=== PATIENT | female | born 1980 | race Caucasian/White ===

== ENCOUNTER 2016-04-14 17:59 | Emergency (ER) | payer OTHER ==
[2016-04-14 18:11] VITALS: BP 146/72; PULSE 74; TEMP 98.3; BMI 28.5
[2016-04-14] MEDS ORDERED: ONDANSETRON 4 MG/2 ML VIAL IVPB ONE (18:48)
[2016-04-14] MEDS ORDERED: KETOROLAC TROMETHAMINE 30 MG/1 ML VIAL IVPUSH ONE (18:49)
--- NOTE | 2016-04-14 18:50 | PDOC ---
History of Present Illness - General History Source: Patient, Family, Old Records Exam Limitations: No Limitations - History of Present Illness Initial Comments: 04/14/16 19:09 The patient is a 35 year old female with a significant past medical history of severe migraines who presents to the emergency department with a migraine. The patient states that she has had intermittent migraines for the past year and a half. The patient describes the pain as constantly being stabbed in the head. The patient states that her migraine is accompanied by nausea, numbness and tingling in her right arm and neck pain. The patient states that she took percocet and benadryl at 4:30 with minimal relief of symptoms. 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 Patient sees her neurologist twice a week. This is the patients 6th visit to the emergency department in the last 30 days. The patient states that she is a candidate for a trial neurosurgery later this month. The patient denies diarrhea and vomiting Neurologist - Dr. Tiana Villalpando at [facility] <Amor Pierre - Last Filed: 04/14/16 20:20> - History of Present Illness Initial Comments: 04/23/16 08:15 Patient with intractable migraine headaches, has been to multiple therapies, under the care of a neurologist, exacerbation of headache today. Headache fits her usual pattern. No unusual symptoms. No visual or focal neurologic symptoms or unsteadiness of gait Physical exam alert and oriented with a headache. Appears to be in mild distress Afebrile, vital signs are normal Neurological intact. Cranial nerves intact. Strength is symmetric. No focal sensory or motor deficits. Gait stable and improved. 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 Antibiotics and Toradol. Further evaluation pain management. Signed out to Dr. Medina 7 PM for further treatment. <Shreyas Barboza - Last Filed: 04/23/16 08:17> - General Chief Complaint: Migraine Headache Stated Complaint: MIGRAINE HEADACHE Time Seen by Provider: 04/14/16 18:38 Past History <Amor Pierre - Last Filed: 04/14/16 20:20> - Past Medical History HTN: Yes Psychiatric Problems: Yes (DEPRESSION/ANXIETY/ADHD) Suicide Attempt (Hx): No - Psycho/Social/Smoking Cessation Hx Anxiety: No Suicidal Ideation: No Smoking Status: Yes Smoking History: Former smoker Have you smoked in the past 12 months: Yes Number of Cigarettes Smoked Daily: 10 If you are a former smoker, when did you quit?: JANUARY Information on smoking cessation initiated: No 'Breaking Loose' booklet given: 03/24/16 Hx Alcohol Use: No Drug/Substance Use Hx: No Substance Use Type: None <Shreyas Barboza - Last Filed: 04/23/16 08:17> - Past Medical History Allergies/Adverse Reactions: Allergies Allergy/AdvReac Type Severity Reaction Status Date / Time No Known Allergies Allergy Verified 03/28/16 19:23 Home Medications: Ambulatory Orders Buspirone HCl [Buspar -] 30 mg PO BID 09/08/14 Lorazepam [Ativan] 1 mg PO TID 09/08/14 Sertraline HCl [Zoloft] 200 mg PO HS 09/08/14 Divalproex [Depakote -] 500 mg PO BID 03/19/16 Quetiapine Fumarate [Seroquel -] 50 mg PO HS 03/19/16 Sumatriptan Succinate [Imitrex -] 50 mg PO ASDIR PRN 03/19/16 Oxycodone HCl/Acetaminophen [Percocet 5-325 mg Tablet] 1 tab PO Q4H #12 tablet MDD 8 03/28/16 Diphenhydramine HCl [Benadryl -] 25 mg PO ONCE PRN 04/14/16 Review of Systems - Review of Systems Able to Perform ROS?: Yes Comments:: 04/14/16 19:10 CONSTITUTIONAL: Absent: fever, chills, diaphoresis, generalized weakness, malaise, loss of appetite HEENT: Absent: rhinorrhea, nasal congestion, throat pain, throat swelling, difficulty swallowing, mouth swelling, ear pain, eye pain, visual Changes CARDIOVASCULAR: Absent: chest pain, syncope, palpitations, irregular heart rate, lightheadedness , peripheral edema RESPIRATORY: Absent: cough, shortness of breath, dyspnea with exertion, orthopnea, wheezing, stridor, hemoptysis GASTROINTESTINAL: Present: Nausea Absent: abdominal pain, abdominal distension, nausea, vomiting, diarrhea, constipation, melena, hematochezia GENITOURINARY: Absent: dysuria, frequency, urgency, hesitancy, hematuria, flank pain, genital pain MUSCULOSKELETAL: Present: Right arm tinglingness and neck pain. Absent: arthralgia and joint swelling SKIN: Absent: rash, itching, pallor HEMATOLOGIC/IMMUNOLOGIC: Absent: easy bleeding, easy bruising, lymphadenopathy, frequent infections ENDOCRINE: Absent: unexplained weight gain, unexplained weight loss, heat intolerance, cold intolerance NEUROLOGIC: Present: Migraine Absent: headache, focal weakness or paresthesias, dizziness, unsteady gait, seizure, mental status changes, bladder or bowel incontinence PSYCHIATRIC: Absent: anxiety, depression, suicidal or homicidal ideation, hallucinations. <Amor Pierre - Last Filed: 04/14/16 20:20> *Physical Exam - Vital Signs Last Vital Signs Temp Pulse Resp BP Pulse Ox 98.3 F 74 16 146/72 100 04/14/16 18:00 04/14/16 18:00 04/14/16 18:00 04/14/16 18:00 04/14/16 18:00 - Physical Exam Comments: 04/14/16 19:10 GENERAL: Well developed, well nourished. Awake and alert. In no acute distress. HEENT: Normocephalic, atraumatic. PERRLA, EOMI. No conjunctival pallor. Sclera are non- icteric. Moist mucous membranes. Oropharynx is clear. NECK: Supple. Full ROM. No JVD. Carotid pulses 2+ and symmetric, without bruits. No thyromegaly. No lymphadenopathy. CARDIOVASCULAR: Regular rate and rhythm. No murmurs, rubs, or gallops. Distal pulses are 2+ and symmetric. PULMONARY: No evidence of respiratory distress. Lungs clear to auscultation bilaterally. No wheezing, rales or rhonchi. ABDOMINAL: Soft. Non-tender. Non-distended. No rebound or guarding. No organomegaly. Normoactive bowel sounds. MUSCULOSKELETAL Normal range of motion at all joints. No bony deformities or tenderness. No CVA tenderness. EXTREMITIES: No cyanosis. No clubbing. No edema. No calf tenderness. SKIN: Warm and dry. Normal capillary refill. No rashes. No jaundice. NEUROLOGICAL: Photophobia, Alert, awake, appropriate. Cranial nerves 2-12 intact. No deficits to light touch and temperature in face, upper extremities and lower extremities. No motor deficits in the in face, upper extremities and lower extremities. Normoreflexic in the upper and lower extremities. Normal speech. Ambulatory with stable gait without ataxia. PSYCHIATRIC: Cooperative. Appropriate mood and affect <Amor Pierre - Last Filed: 04/14/16 20:20> - Vital Signs Last Vital Signs Temp Pulse Resp BP Pulse Ox 98.3 F 74 16 146/72 100 04/14/16 18:00 04/14/16 18:00 04/14/16 18:00 04/14/16 18:00 04/14/16 18:00 <Shreyas Barboza - Last Filed: 04/23/16 08:17> *DC/Admit/Observation/Transfer - Attestations Scribe Attestion: 04/14/16 19:10 Documentation prepared by Amor Pierre, acting as medical underwriter for Shreyas Barboza MD. <Amor Pierre - Last Filed: 04/14/16 20:20> <Shreyas Barboza - Last Filed: 04/23/16 08:17> Diagnosis at time of Disposition: Migraine headache - Discharge Dispostion Disposition: HOME Condition at time of disposition: Stable - Referrals Referrals: Gary Dorado MD [Primary Care Provider] - - Patient Instructions Printed Discharge Instructions: Migraine Headaches (Alternative Therapy) Additional Instructions: followup with neurologist on Apr 16 as scheduled continue medications as prescribed return to ER as needed
[2016-04-14] MEDS ORDERED: KETOROLAC TROMETHAMINE 30 MG/1 ML VIAL ONE (19:03)
[2016-04-14] MEDS ORDERED: ONDANSETRON 4 MG/2 ML VIAL ONE (19:03)
--- NOTE | 2016-04-14 19:23 | PDOC ---
*Physical Exam - Vital Signs Last Vital Signs Temp Pulse Resp BP Pulse Ox 98.3 F 74 16 146/72 100 04/14/16 18:00 04/14/16 18:00 04/14/16 18:00 04/14/16 18:00 04/14/16 18:00 ED Treatment Course - Medications Given in the ED: ED Medications Discontinued Medications Generic Name Dose Route Start Last Admin Trade Name Preethi PRN Reason Stop Dose Admin Diphenhydramine HCl 50 mg 04/14/16 18:49 04/14/16 19:00 Benadryl Injection - IVPUSH 04/14/16 18:50 50 mg ONCE ONE Administration Ketorolac Tromethamine 30 mg 04/14/16 18:49 04/14/16 19:05 Toradol Injection - IVPUSH 04/14/16 18:50 30 mg ONCE ONE Administration Ondansetron HCl 4 mg 04/14/16 18:48 04/14/16 19:14 Zofran Injection IVPB 04/14/16 18:49 4 mg ONCE ONE Administration Progress Note - Progress Note Progress Note: Care of this patient received from Dr. Anderson. The patient reports no relief in her pain after Toradol/Benadryl/Zofran, although she is no longer nauseated Dilaudid 1 mg IV administered. Patient reports relief of pain after Dilaudid given. Follow-up will be with the patient's neurologist on April 16. Patient states that she will be having her neurosurgical procedure sometime in the next few weeks (" before the end of the month ") *DC/Admit/Observation/Transfer Diagnosis at time of Disposition: Migraine headache Qualifiers: Migraine type: other Status migrainosus presence: without status migrainosus Intractability: not intractable Qualified Code(s): G43.809 - Other migraine, not intractable, without status migrainosus - Discharge Dispostion Disposition: HOME Condition at time of disposition: Stable - Referrals Referrals: Gary Dorado MD [Primary Care Provider] - - Patient Instructions Printed Discharge Instructions: Migraine Headaches (Alternative Therapy) Additional Instructions: followup with neurologist on Apr 16 as scheduled continue medications as prescribed return to ER as needed - Post Discharge Activity
[2016-04-14] MEDS ORDERED: HYDROmorphone HCL CARPU-JECT 1 MG/1 ML DISP.SYRIN IVPUSH ONE (20:17)
[2016-04-14] MEDS ORDERED: HYDROmorphone HCL CARPU-JECT 2 MG/1 ML DISP.SYRIN ONE (20:29)
== END 2016-04-14 21:01 | disposition home or self-care (01) ==
LOC: FER 17:59
PROC: 3E033NZ Introduction of Analgesics, Hypnotics, Sedatives into Peripheral Vein, Percutaneous Approach (ICD-10-PCS; principal; 2016-04-14)
PROC: 3E033GC Introduction of Other Therapeutic Substance into Peripheral Vein, Percutaneous Approach (ICD-10-PCS; 2016-04-14)
PROC: 3E0333Z Introduction of Anti-inflammatory into Peripheral Vein, Percutaneous Approach (ICD-10-PCS; 2016-04-14)
DX: G43.809 Other migraine, not intractable, without status migrainosus (principal); Z87.891 Personal history of nicotine dependence; I10 Essential (primary) hypertension; F41.8 Other specified anxiety disorders
CPT/HCPCS: 99282-25

== ENCOUNTER 2016-04-23 13:30 | Emergency (ER) | payer OTHER ==
[2016-04-23 13:40] VITALS: BMI 29.0
[2016-04-23] MEDS ORDERED: KETOROLAC TROMETHAMINE 30 MG/1 ML VIAL IVPUSH ONE (14:43)
[2016-04-23] MEDS ORDERED: LORAZEPAM CARPU-JECT 2 MG/ML DISP.SYRIN IVPUSH ONE (14:44)
[2016-04-23] MEDS ORDERED: HYDROmorphone HCL CARPU-JECT 1 MG/1 ML DISP.SYRIN IVPUSH ONE (14:44)
[2016-04-23] MEDS ORDERED: LORAZEPAM CARPU-JECT 2 MG/ML DISP.SYRIN ONE (14:57)
[2016-04-23] MEDS ORDERED: KETOROLAC TROMETHAMINE 30 MG/1 ML VIAL ONE (14:57)
[2016-04-23] MEDS ORDERED: HYDROmorphone HCL CARPU-JECT 2 MG/1 ML DISP.SYRIN ONE (14:57)
--- NOTE | 2016-04-23 15:38 | PDOC ---
History of Present Illness - General History Source: Patient Exam Limitations: No Limitations - History of Present Illness Initial Comments: 04/23/16 15:38 The patient is a 35 year old female, with a significant past medical history of HTN, migraines, ADHD, depressions, and anxiety who presents to the emergency department with a migraine headache with nausea that started today. The patient ranks her headache pain a 10/10 in pain intensity. She describes her headache as a stabbing pressure at her frontal lobe and relates that this is similar to her previous migraine headaches. She reports going to see her neurologist this morning during this headache and was giving nerve blocks that only elicited temporary relief. She reports recently booking a surgery with her neurologist at [facility] could help alleviate her severe migraines. She reports took a percocet this morning with no significant alleviation at 8:30am. She denies chest pain and shortness of breath. She denies fever, chills, and dizziness. She denies vomit, diarrhea and constipation. She denies dysuria, frequency, urgency and hematuria. Allergies: NKA Past surgical history: denies Social history: Former smoker, denies EtOH use, denies drug use. PCP: <Donny Plunkett - Last Filed: 04/23/16 15:38> <Shreyas Barboza - Last Filed: 04/23/16 16:59> - General Chief Complaint: Migraine Headache Stated Complaint: MIGRAINE HEADACHE Time Seen by Provider: 04/23/16 13:51 Past History <Donny Plunkett - Last Filed: 04/23/16 15:38> - Past Medical History HTN: Yes Psychiatric Problems: Yes (DEPRESSION/ANXIETY/ADHD) Suicide Attempt (Hx): No Other medical history: MIGRAINE HEADACHES - Psycho/Social/Smoking Cessation Hx Anxiety: Yes Suicidal Ideation: No Smoking Status: Yes Smoking History: Former smoker Have you smoked in the past 12 months: Yes Number of Cigarettes Smoked Daily: 10 If you are a former smoker, when did you quit?: JANUARY Information on smoking cessation initiated: No 'Breaking Loose' booklet given: 04/23/16 Hx Alcohol Use: No Drug/Substance Use Hx: No Substance Use Type: None <Shreyas Barboza - Last Filed: 04/23/16 16:59> - Past Medical History Allergies/Adverse Reactions: Allergies Allergy/AdvReac Type Severity Reaction Status Date / Time No Known Allergies Allergy Verified 04/23/16 13:34 Home Medications: Ambulatory Orders Buspirone HCl [Buspar -] 30 mg PO BID 09/08/14 Lorazepam [Ativan] 1 mg PO TID 09/08/14 Sertraline HCl [Zoloft] 200 mg PO HS 09/08/14 Divalproex [Depakote -] 500 mg PO BID 03/19/16 Quetiapine Fumarate [Seroquel -] 50 mg PO HS 03/19/16 Oxycodone HCl/Acetaminophen [Percocet 5-325 mg Tablet] 1 tab PO Q4H #12 tablet MDD 8 03/28/16 Diphenhydramine HCl [Benadryl -] 25 mg PO ONCE PRN 04/14/16 Tizanidine HCl 4 mg PO PRN PRN 04/23/16 Zolmitriptan [Zomig] 2.5 mg PO BID 04/23/16 Review of Systems - Review of Systems Able to Perform ROS?: Yes Comments:: 04/23/16 15:38 CONSTITUTIONAL: Absent: fever, chills, diaphoresis, generalized weakness, malaise, loss of appetite HEENT: Absent: rhinorrhea, nasal congestion, throat pain, throat swelling, difficulty swallowing, mouth swelling, ear pain, eye pain, visual Changes CARDIOVASCULAR: Absent: chest pain, syncope, palpitations, irregular heart rate, lightheadedness , peripheral edema RESPIRATORY: Absent: cough, shortness of breath, dyspnea with exertion, orthopnea, wheezing, stridor, hemoptysis GASTROINTESTINAL: Present: Nausea. Absent: abdominal pain, abdominal distension, vomiting, diarrhea, constipation, melena, hematochezia GENITOURINARY: Absent: dysuria, frequency, urgency, hesitancy, hematuria, flank pain, genital pain MUSCULOSKELETAL: Absent: myalgia, arthralgia, joint swelling SKIN: Absent: rash, itching, pallor HEMATOLOGIC/IMMUNOLOGIC: Absent: easy bleeding, easy bruising, lymphadenopathy, frequent infections ENDOCRINE: Absent: unexplained weight gain, unexplained weight loss, heat intolerance, cold intolerance NEUROLOGIC: Present: headache Absent:focal weakness or paresthesias, dizziness, unsteady gait, seizure, mental status changes, bladder or bowel incontinence PSYCHIATRIC: Absent: anxiety, depression, suicidal or homicidal ideation, hallucinations. <Donny Plunkett - Last Filed: 04/23/16 15:38> *Physical Exam - Vital Signs Last Vital Signs Temp Pulse Resp BP Pulse Ox 98.7 F 87 18 127/75 98 04/23/16 13:30 04/23/16 13:30 04/23/16 13:30 04/23/16 13:30 04/23/16 13:30 - Physical Exam Comments: 04/23/16 15:38 GENERAL: Well developed, well nourished. Awake and alert. Moderate distress from centripetal headaches, usual for this patient with photophobia and nausea. HEENT: Normocephalic, atraumatic. PERRLA, Pupils were 4mm and reactive. No conjunctival pallor. Sclera are non-icteric. Moist mucous membranes. Oropharynx is clear. NECK: Supple. Full ROM. No JVD. Carotid pulses 2+ and symmetric, without bruits. No thyromegaly. No lymphadenopathy. CARDIOVASCULAR: Regular rate and rhythm. No murmurs, rubs, or gallops. Distal pulses are 2+ and symmetric. PULMONARY: No evidence of respiratory distress. Lungs clear to auscultation bilaterally. No wheezing, rales or rhonchi. ABDOMINAL: Soft. Non-tender. Non-distended. No rebound or guarding. No organomegaly. Normoactive bowel sounds. MUSCULOSKELETAL Normal range of motion at all joints. No bony deformities or tenderness. No CVA tenderness. EXTREMITIES: No cyanosis. No clubbing. No edema. No calf tenderness. SKIN: Warm and dry. Normal capillary refill. No rashes. No jaundice. NEUROLOGICAL: Alert, awake, appropriate. Cranial nerves 2-12 intact. No deficits to light touch and temperature in face, upper extremities and lower extremities. No motor deficits in the in face, upper extremities and lower extremities. Normoreflexic in the upper and lower extremities. Normal speech. Toes are down- going bilaterally. Gait is normal without ataxia. PSYCHIATRIC: Cooperative. Good eye contact. Appropriate mood and affect. <Donny Plunkett - Last Filed: 04/23/16 15:38> - Vital Signs Last Vital Signs Temp Pulse Resp BP Pulse Ox 98.7 F 87 18 127/75 98 04/23/16 13:30 04/23/16 13:30 04/23/16 13:30 04/23/16 13:30 04/23/16 13:30 <Shreyas Barboza - Last Filed: 04/23/16 16:59> ED Treatment Course - Medications Given in the ED: ED Medications Discontinued Medications Generic Name Dose Route Start Last Admin Trade Name Freq PRN Reason Stop Dose Admin Diphenhydramine HCl 50 mg 04/23/16 14:43 04/23/16 15:00 Benadryl Injection - IVPUSH 04/23/16 14:44 50 mg ONCE ONE Administration Hydromorphone HCl 1 mg 04/23/16 14:44 04/23/16 15:15 Dilaudid Injection - IVPUSH 04/23/16 14:45 1 mg ONCE ONE Administration Ketorolac Tromethamine 30 mg 04/23/16 14:43 04/23/16 15:00 Toradol Injection - IVPUSH 04/23/16 14:44 30 mg ONCE ONE Administration <Donny Plunkett - Last Filed: 04/23/16 15:38> - Medications Given in the ED: ED Medications Discontinued Medications Generic Name Dose Route Start Last Admin Trade Name Freq PRN Reason Stop Dose Admin Diphenhydramine HCl 50 mg 04/23/16 14:43 04/23/16 15:00 Benadryl Injection - IVPUSH 04/23/16 14:44 50 mg ONCE ONE Administration Hydromorphone HCl 1 mg 04/23/16 14:44 04/23/16 15:15 Dilaudid Injection - IVPUSH 04/23/16 14:45 1 mg ONCE ONE Administration Ketorolac Tromethamine 30 mg 04/23/16 14:43 04/23/16 15:00 Toradol Injection - IVPUSH 04/23/16 14:44 30 mg ONCE ONE Administration <Shreyas Barboza - Last Filed: 04/23/16 16:59> Medical Decision Making - Medical Decision Making 04/23/16 16:56 Spoke to the patient's neurologist, Dr. Low, by phone. She verifies she is under treatment, received nerve blocks this morning in the office and seemed to improve. She does not think that the patient is drug seeking, though she does have considerable psychiatric overlay to her condition. Migraines have been present since her youth, but have intensified over the last 2-1/2 years Patient's neurological exam is intact. She has no deficits that her gait is stable. She has responded well to intravenous medication, headache is resolving and she is fully ambulatory, desiring to leave. Discharged in the company of her family to follow up as scheduled with her neurologist and surgeon. <Shreyas Barboza - Last Filed: 04/23/16 16:59> *DC/Admit/Observation/Transfer - Attestations Scribe Attestion: 04/23/16 15:39 Documentation prepared by Donny Plunkett, acting as medical pathologist for Shreyas Zhu MD. <Donny Plunkett - Last Filed: 04/23/16 15:38> - Discharge Dispostion Admit: No <Shreyas Barboza - Last Filed: 04/23/16 16:59> Diagnosis at time of Disposition: Migraine headache Qualifiers: Migraine type: unspecified Status migrainosus presence: with status migrainosus Intractability: intractable Qualified Code(s): G43.911 - Migraine, unspecified, intractable, with status migrainosus - Discharge Dispostion Condition at time of disposition: Stable - Referrals Referrals: Gary Dorado MD [Primary Care Provider] - - Patient Instructions Additional Instructions: Medication as directed by your neurologist. See your neurologist for follow-up as scheduled.
[2016-04-23 16:34] VITALS: BP 117/65; PULSE 89; TEMP 97.8
== END 2016-04-23 16:35 | disposition home or self-care (01) ==
LOC: FER 13:30
PROC: 3E033NZ Introduction of Analgesics, Hypnotics, Sedatives into Peripheral Vein, Percutaneous Approach (ICD-10-PCS; principal; 2016-04-23)
PROC: 3E0333Z Introduction of Anti-inflammatory into Peripheral Vein, Percutaneous Approach (ICD-10-PCS; 2016-04-23)
PROC: 3E033GC Introduction of Other Therapeutic Substance into Peripheral Vein, Percutaneous Approach (ICD-10-PCS; 2016-04-23)
DX: G43.911 Migraine, unspecified, intractable, with status migrainosus (principal); I10 Essential (primary) hypertension; F41.8 Other specified anxiety disorders; Z87.891 Personal history of nicotine dependence
CPT/HCPCS: 99284-25

== ENCOUNTER 2016-05-06 09:53 | Emergency (ER) | payer OTHER ==
[2016-05-06 10:13] VITALS: BP 123/80; PULSE 88; TEMP 98.1; BMI 29.0
[2016-05-06] MEDS ORDERED: HYDROmorphone HCL CARPU-JECT 1 MG/1 ML DISP.SYRIN IVPB ONE (10:19)
[2016-05-06] MEDS ORDERED: ONDANSETRON 4 MG/2 ML VIAL IVPB ONE (10:19)
[2016-05-06] MEDS ORDERED: KETOROLAC TROMETHAMINE 30 MG/1 ML VIAL IVPUSH ONE (10:19)
[2016-05-06] MEDS ORDERED: SODIUM CHLORIDE 1,000 ML IV STA (10:20)
[2016-05-06] MEDS ORDERED: HYDROmorphone HCL CARPU-JECT 2 MG/1 ML DISP.SYRIN ONE (10:27)
[2016-05-06] MEDS ORDERED: ONDANSETRON 4 MG/2 ML VIAL ONE (10:27)
--- NOTE | 2016-05-06 10:51 | PDOC ---
History of Present Illness - General Chief Complaint: Migraine Headache Stated Complaint: migraine Time Seen by Provider: 05/06/16 10:00 History Source: Patient Exam Limitations: No Limitations - History of Present Illness Initial Comments: 05/06/16 11:16 35-year-old female with past medical history of hypertension, migraines, ADHD, depression and anxiety presents to the emergency department for persistent migraines. Patient was here on April 23 for similar types of migraines. She reports that it is sharp and pounding and is in the frontal and posterior parts of her head, similar to her prior headaches. She has been going for intermittent nerve blocks. She reports that she's been taking Percocets with minimal to moderate relief. She has an appointment for an experimental nerve decompression surgery in the second week of May. The patient accompanied by her father. Denies fevers, chills. Stated that this episode, the headache occurred for the last 3 days. Past History - Past Medical History Allergies/Adverse Reactions: Allergies Allergy/AdvReac Type Severity Reaction Status Date / Time No Known Allergies Allergy Verified 05/06/16 09:54 Home Medications: Ambulatory Orders Buspirone HCl [Buspar -] 30 mg PO BID 09/08/14 Lorazepam [Ativan] 1 mg PO TID 09/08/14 Sertraline HCl [Zoloft] 200 mg PO HS 09/08/14 Quetiapine Fumarate [Seroquel -] 50 mg PO HS 03/19/16 Oxycodone HCl/Acetaminophen [Percocet 5-325 mg Tablet] 1 tab PO Q4H #12 tablet MDD 8 03/28/16 Diphenhydramine HCl [Benadryl -] 25 mg PO ONCE PRN 04/14/16 Tizanidine HCl 4 mg PO PRN PRN 04/23/16 Zolmitriptan [Zomig] 2.5 mg PO BID 04/23/16 HTN: Yes Psychiatric Problems: Yes (DEPRESSION/ANXIETY/ADHD) Suicide Attempt (Hx): No Other medical history: migraine - Psycho/Social/Smoking Cessation Hx Anxiety: Yes Suicidal Ideation: No Smoking Status: Yes Smoking History: Former smoker Have you smoked in the past 12 months: Yes Number of Cigarettes Smoked Daily: 10 If you are a former smoker, when did you quit?: JANUARY Information on smoking cessation initiated: Yes 'Breaking Loose' booklet given: 05/06/16 Hx Alcohol Use: No Drug/Substance Use Hx: No Substance Use Type: None Review of Systems - Review of Systems Able to Perform ROS?: Yes Comments:: 05/06/16 11:17 GENERAL/CONSTITUTIONAL: No fever, weakness. HEAD, EYES, EARS, NOSE AND THROAT: No change in vision. No ear pain or discharge. No sore throat. CARDIOVASCULAR: No chest pain or shortness of breath. RESPIRATORY: No cough, wheezing, or hemoptysis. GASTROINTESTINAL: No abdominal pain, nausea, vomiting, diarrhea, or decreased PO intolerance. GENITOURINARY: No dysuria, frequency, or change in urination. MUSCULOSKELETAL: No joint or muscle swelling or pain. No neck or back pain. SKIN: No rash NEUROLOGIC: + headache. No vertigo, loss of consciousness, or change in strength /sensation. ENDOCRINE: No increased thirst. No abnormal weight change. HEMATOLOGIC/LYMPHATIC: No anemia, easy bleeding, or history of blood clots. ALLERGIC/IMMUNOLOGIC: No hives or skin allergy. *Physical Exam - Vital Signs Last Vital Signs Temp Pulse Resp BP Pulse Ox 98.1 F 88 20 123/80 99 05/06/16 09:53 05/06/16 09:53 05/06/16 09:53 05/06/16 09:53 05/06/16 09:53 - Physical Exam Comments: 05/06/16 11:17 GENERAL: Awake, alert, and fully oriented. Uncomfortable appearing. HEAD: No signs of trauma EYES: PERRLA, EOMI, sclera anicteric, conjunctiva clear ENT: Auricles normal inspection, hearing grossly normal, nares patent, oropharynx clear without exudates. NECK: Normal ROM, supple, no lymphadenopathy, JVD, or masses LUNGS: Breath sounds equal, clear to auscultation bilaterally. No wheezes, and no crackles HEART: Regular rate and rhythm, normal S1 and S2, no murmurs, rubs or gallops ABDOMEN: Soft, nontender, normoactive bowel sounds. No guarding, no rebound. No masses EXTREMITIES: Normal range of motion, no edema. No clubbing or cyanosis. No cords, erythema, or tenderness NEUROLOGICAL: Cranial nerves II - XII intact. Normal speech, normal gait. 5/5 strength upper and lower extremities intact. Sensation intact. No pronator drift. SKIN: Warm, Dry, normal turgor, no rashes or lesions noted. Medical Decision Making - Medical Decision Making 05/06/16 11:18 Vital Signs Temp Pulse Resp BP Pulse Ox 98.1 F 88 20 123/80 99 05/06/16 09:53 05/06/16 09:53 05/06/16 09:53 05/06/16 09:53 05/06/16 09:53 CLINICAL SUPPORT TECH Registry reviewed. Reference #: [id number] Prior documentation reviewed. The patient presents with particularly difficult to control migraines. She is preparing to undergo experimental nerve decompression surgery. Prior documentation notes that cases were discussed with her doctors. The patient did acknowledge that she uses percocets and triptans for her constant migraines. Will give her IV toradol, IV dilaudid, zofran, and benadryl and reassess. I had placed a phone call to her neurologist Dr. Villalpando, and awaiting a phone call back. Once the patient feels better, will d/c with her father and have her follow up with the neurologist. 05/06/16 11:31 test negative. Patient reports much more relief. Will d/c home with dad. Patient has an appointment with her neurologist tomorrow at 9:30 am. I discussed the physical exam findings, ancillary test results and final diagnoses with the patient. I answered all of the patient's questions. The patient was satisfied with the care received and felt comfortable with the discharge plan and treatment plan. The patient will call their primary care physician within 24 hours to arrange follow-up and will return to the Emergency Department with any new, persistant or worsening symptoms. *DC/Admit/Observation/Transfer Diagnosis at time of Disposition: Migraine headache Qualifiers: Migraine type: other Status migrainosus presence: without status migrainosus Intractability: not intractable Qualified Code(s): G43.809 - Other migraine, not intractable, without status migrainosus - Discharge Dispostion Disposition: HOME Condition at time of disposition: Improved Admit: No - Patient Instructions Printed Discharge Instructions: DI for Migraine Additional Instructions: Please follow up with your neurologist tomorrow.
[2016-05-06] MEDS ORDERED: KETOROLAC TROMETHAMINE 30 MG/1 ML VIAL ONE (11:32)
== END 2016-05-06 11:37 | disposition home or self-care (01) ==
LOC: FER 09:53
PROC: 3E033NZ Introduction of Analgesics, Hypnotics, Sedatives into Peripheral Vein, Percutaneous Approach (ICD-10-PCS; principal; 2016-05-06)
PROC: 3E0333Z Introduction of Anti-inflammatory into Peripheral Vein, Percutaneous Approach (ICD-10-PCS; 2016-05-06)
PROC: 3E033GC Introduction of Other Therapeutic Substance into Peripheral Vein, Percutaneous Approach (ICD-10-PCS; 2016-05-06)
PROC: 3E0337Z Introduction of Electrolytic and Water Balance Substance into Peripheral Vein, Percutaneous Approach (ICD-10-PCS; 2016-05-06)
DX: G43.809 Other migraine, not intractable, without status migrainosus (principal); I10 Essential (primary) hypertension; F41.8 Other specified anxiety disorders; F17.210 Nicotine dependence, cigarettes, uncomplicated
CPT/HCPCS: 84703; 99283-25

== ENCOUNTER 2016-05-20 18:40 | Emergency (ER) | payer OTHER ==
[2016-05-20 18:52] VITALS: BP 130/91; PULSE 79; TEMP 98.6; BMI 29.1
--- NOTE | 2016-05-20 19:21 | PDOC ---
History of Present Illness - General History Source: Patient Exam Limitations: No Limitations - History of Present Illness Initial Comments: 05/20/16 19:30 The patient is a 35-year-old female with past medical history of hypertension, migraines, ADHD, depression and anxiety presents to the emergency department for a migraine headache and nausea that began 2 days ago. Patient describes the headache as a band around the head. She states the pain is throbbing and is 10/ 10 in severity. She states the migraine headache worsens with light, smells, and cold weather. She states she had a nerve block this morning (w/ a numbing agent), wore off around 2 PM. She states she has had similar symptoms in the past and was given Toradol, Benadryl, Reglan, and Dilaudid in the ER. She is slated for a nerve decompression procedure in the near future, but is solving issues with insurance. <Hansel Royal - Last Filed: 05/20/16 19:53> <Maira Medina - Last Filed: 05/20/16 21:26> - General Chief Complaint: Migraine Headache Stated Complaint: HEADACHE Time Seen by Provider: 05/20/16 19:14 Past History <Hansel Royal - Last Filed: 05/20/16 19:53> - Past Medical History HTN: Yes Psychiatric Problems: Yes (DEPRESSION/ANXIETY/ADHD) Suicide Attempt (Hx): No Other medical history: MIGRAINE HEADACHES - Psycho/Social/Smoking Cessation Hx Anxiety: No Suicidal Ideation: No Smoking Status: Yes Smoking History: Former smoker Have you smoked in the past 12 months: No Number of Cigarettes Smoked Daily: 10 If you are a former smoker, when did you quit?: JANUARY Information on smoking cessation initiated: No 'Breaking Loose' booklet given: 05/06/16 Hx Alcohol Use: No Drug/Substance Use Hx: No Substance Use Type: None <Maira Medina - Last Filed: 05/20/16 21:26> - Past Medical History Allergies/Adverse Reactions: Allergies Allergy/AdvReac Type Severity Reaction Status Date / Time No Known Allergies Allergy Verified 05/20/16 18:46 Home Medications: Ambulatory Orders Buspirone HCl [Buspar -] 30 mg PO BID 09/08/14 Lorazepam [Ativan] 1 mg PO TID 05/28/15 Sertraline HCl [Zoloft] 200 mg PO HS 09/08/14 Quetiapine Fumarate [Seroquel -] 50 mg PO HS 03/19/16 Oxycodone HCl/Acetaminophen [Percocet 5-325 mg Tablet] 1 tab PO Q4H #12 tablet MDD 8 03/28/16 Diphenhydramine HCl [Benadryl -] 25 mg PO ONCE PRN 04/14/16 Tizanidine HCl 4 mg PO PRN PRN 04/23/16 Zolmitriptan [Zomig] 2.5 mg PO BID 04/23/16 Review of Systems - Review of Systems Able to Perform ROS?: Yes Comments:: 05/20/16 19:30 CONSTITUTIONAL: Absent: fever, no chills, no fatigue EYES: Absent: visual changes ENT: Absent: ear pain, no sore throat CARDIOVASCULAR: Absent: chest pain, no palpitations RESPIRATORY: Absent: cough, no SOB GI: Present: nausea Absent: abdominal pain, no vomiting, no constipation, no diarrhea GENITOURINARY: Absent: dysuria, no frequency, no hematuria MUSKULOSKELETAL: Absent: back pain, no arthralgia, no myalgia SKIN: Absent: rash NEURO: Present: headache. Is the patient limited [place] proficient: No <Hansel Royal - Last Filed: 05/20/16 19:53> *Physical Exam - Vital Signs Last Vital Signs Temp Pulse Resp BP Pulse Ox 98.6 F 79 18 130/91 98 05/20/16 18:40 05/20/16 18:40 05/20/16 18:40 05/20/16 18:40 05/20/16 18:40 - Physical Exam Comments: 05/20/16 19:35 GENERAL: The patient is awake, alert, and fully oriented. Photophobic. Moderate distress secondary to headache pain. HEAD:Normal with no signs of trauma. NECK: Tenderness of paraspinal muscles of the neck. Left greater than right. EYES: Pupils equal, round and reactive to light, extraocular movements intact, sclera anicteric, conjunctiva clear. EXTREMITIES: Normal range of motion, no edema. NEUROLOGICAL: Normal speech, normal gait. PSYCH: Normal mood, normal affect. SKIN: Warm, Dry, normal turgor, no rashes or lesions noted. <Hansel Royal - Last Filed: 05/20/16 19:53> - Vital Signs Last Vital Signs Temp Pulse Resp BP Pulse Ox 98.6 F 79 18 130/91 98 05/20/16 18:40 05/20/16 18:40 05/20/16 18:40 05/20/16 18:40 05/20/16 18:40 <Maira Medina - Last Filed: 05/20/16 21:26> *DC/Admit/Observation/Transfer - Attestations Scribe Attestion: 05/20/16 19:35 Documentation prepared by Hansel Royal, acting as spanish medical interpreter for aMira Medina MD. <Hansel Royal - Last Filed: 05/20/16 19:53> <Maira Medina - Last Filed: 05/20/16 21:26> Diagnosis at time of Disposition: Migraine headache Qualifiers: Migraine type: without aura Status migrainosus presence: with status migrainosus Intractability: not intractable Qualified Code(s): G43.001 - Migraine without aura, not intractable, with status migrainosus - Discharge Dispostion Disposition: HOME Condition at time of disposition: Stable - Referrals Referrals: Gary Dorado MD [Primary Care Provider] - - Patient Instructions Printed Discharge Instructions: DI for Migraine Additional Instructions: continue medications as prescribed contact neurologist tomorrow and followup as arranged return to ER as needed
[2016-05-20] MEDS ORDERED: ONDANSETRON 4 MG/2 ML VIAL IVPUSH ONE (19:25)
[2016-05-20] MEDS ORDERED: KETOROLAC TROMETHAMINE 30 MG/1 ML VIAL IVPUSH ONE (19:25)
[2016-05-20] MEDS ORDERED: ONDANSETRON 4 MG/2 ML VIAL ONE (19:26)
[2016-05-20] MEDS ORDERED: KETOROLAC TROMETHAMINE 30 MG/1 ML VIAL ONE (19:26)
[2016-05-20] MEDS ORDERED: HYDROmorphone HCL CARPU-JECT 1 MG/1 ML DISP.SYRIN IVPUSH ONE ×2 (20:05→20:50)
[2016-05-20] MEDS ORDERED: HYDROmorphone HCL CARPU-JECT 2 MG/1 ML DISP.SYRIN ONE (20:07)
== END 2016-05-20 21:41 | disposition home or self-care (01) ==
LOC: FER 18:40
PROC: 3E033NZ Introduction of Analgesics, Hypnotics, Sedatives into Peripheral Vein, Percutaneous Approach (ICD-10-PCS; principal; 2016-05-20)
PROC: 3E033GC Introduction of Other Therapeutic Substance into Peripheral Vein, Percutaneous Approach (ICD-10-PCS; 2016-05-20)
PROC: 3E0333Z Introduction of Anti-inflammatory into Peripheral Vein, Percutaneous Approach (ICD-10-PCS; 2016-05-20)
DX: G43.001 Migraine without aura, not intractable, with status migrainosus (principal); I10 Essential (primary) hypertension; F90.9 Attention-deficit hyperactivity disorder, unspecified type; F41.9 Anxiety disorder, unspecified; Z87.891 Personal history of nicotine dependence
CPT/HCPCS: 99284-25

== ENCOUNTER 2016-06-02 13:55 | Emergency (ER) | payer OTHER ==
[2016-06-02 14:04] VITALS: TEMP 98.7; BMI 29.0
[2016-06-02] MEDS ORDERED: KETOROLAC TROMETHAMINE 30 MG/1 ML VIAL IVPUSH ONE (14:31)
[2016-06-02] MEDS ORDERED: METOCLOPRAMIDE HCL INJECTION 10 MG/2 ML VIAL IVPUSH ONE (14:31)
--- NOTE | 2016-06-02 14:36 | PDOC ---
History of Present Illness - General History Source: Patient, Family (Father), Old Records Exam Limitations: No Limitations - History of Present Illness Initial Comments: 06/02/16 14:49 The patient is a 35 year old female presenting with her father, with a significant past medical history of hypertension, migraines, ADHD, depression and anxiety, who presents to the emergency department with headache and nausea for 3 days. The patient has been to the ED 10 times since last year for migraines. She notes that she takes Percocet daily for her migraines but hasnt worked recently. She notes that she receives epidurals from her pain management physician and has been worked up in the past by a neurologist. She also states that she has an upcoming surgery for nerve decompression but has not been approved by her insurance. The patient denies chest pain, shortness of breath, and dizziness. Denies fever , chills, vomit, diarrhea and constipation. Allergies: None Past surgical history: None reported Social history: Cigarette use (10 daily). No tobacco or drug use reported PCP - Dr. Dorado Neurologist - Dr. Tiana Villalpando at [facility] <Richie Stallings - Last Filed: 06/02/16 16:02> <Ceasar Rudd - Last Filed: 06/02/16 17:40> - General Chief Complaint: Headache Stated Complaint: HEADACHE Past History <Richie Stallings - Last Filed: 06/02/16 16:02> - Past Medical History HTN: Yes Psychiatric Problems: Yes (DEPRESSION/ANXIETY/ADHD) Suicide Attempt (Hx): No Other medical history: MIGRAINE HEADACHES - Psycho/Social/Smoking Cessation Hx Anxiety: No Suicidal Ideation: No Smoking Status: Yes Smoking History: Former smoker Have you smoked in the past 12 months: No Number of Cigarettes Smoked Daily: 10 If you are a former smoker, when did you quit?: JANUARY Information on smoking cessation initiated: No 'Breaking Loose' booklet given: 06/02/16 Hx Alcohol Use: No Drug/Substance Use Hx: No Substance Use Type: None <Ceasar Rudd - Last Filed: 06/02/16 17:40> - Past Medical History Allergies/Adverse Reactions: Allergies Allergy/AdvReac Type Severity Reaction Status Date / Time No Known Allergies Allergy Verified 06/02/16 13:58 Home Medications: Ambulatory Orders Buspirone HCl [Buspar -] 30 mg PO BID 09/08/14 Lorazepam [Ativan] 1 mg PO TID 09/08/14 Sertraline HCl [Zoloft] 200 mg PO HS 09/08/14 Quetiapine Fumarate [Seroquel -] 50 mg PO HS 03/19/16 Oxycodone HCl/Acetaminophen [Percocet 5-325 mg Tablet] 1 tab PO Q4H #12 tablet MDD 8 03/28/16 Diphenhydramine HCl [Benadryl -] 25 mg PO ONCE PRN 04/14/16 Tizanidine HCl 4 mg PO PRN PRN 04/23/16 Zolmitriptan [Zomig] 2.5 mg PO BID 04/23/16 Review of Systems - Review of Systems Able to Perform ROS?: Yes Comments:: 06/02/16 14:49 GENERAL/CONSTITUTIONAL: No fever or chills. No weakness. HEAD, EYES, EARS, NOSE AND THROAT: +Photohobia. No change in vision. No ear pain or discharge. No sore throat. CARDIOVASCULAR: No chest pain or shortness of breath RESPIRATORY: No cough, wheezing, or hemoptysis. GASTROINTESTINAL: +Nausea. No vomiting, diarrhea or constipation. GENITOURINARY: No dysuria, frequency, or change in urination. MUSCULOSKELETAL: No joint or muscle swelling or pain. No neck or back pain. SKIN: No rash NEUROLOGIC: +Headache. No vertigo, loss of consciousness, or change in strength/ sensation. ENDOCRINE: No increased thirst. No abnormal weight change HEMATOLOGIC/LYMPHATIC: No anemia, easy bleeding, or history of blood clots. ALLERGIC/IMMUNOLOGIC: No hives or skin allergy. <Richie Stallings - Last Filed: 06/02/16 16:02> *Physical Exam - Vital Signs Last Vital Signs Temp Pulse Resp BP Pulse Ox 98.7 F 100 H 20 126/71 97 06/02/16 13:55 06/02/16 13:55 06/02/16 13:55 06/02/16 13:55 06/02/16 13:55 - Physical Exam Comments: 06/02/16 14:49 GENERAL: Awake, alert, and fully oriented, in mild distress HEAD: No signs of trauma, normocephalic, atraumatic EYES: PERRLA, EOMI, sclera anicteric, conjunctiva clear ENT: Auricles normal inspection, hearing grossly normal, nares patent, oropharynx clear without exudates. Moist mucosa NECK: Normal ROM, supple, no lymphadenopathy, JVD, or masses LUNGS: No distress, speaks full sentences, clear to auscultation bilaterally HEART: Regular rate and rhythm, normal S1 and S2, no murmurs, rubs or gallops, peripheral pulses normal and equal bilaterally. ABDOMEN: Soft, nontender, normoactive bowel sounds. No guarding, no rebound. No masses EXTREMITIES: Normal inspection, Normal range of motion, no edema. No clubbing or cyanosis. NEUROLOGICAL: Cranial nerves II through XII grossly intact. Normal speech, normal gait, no focal sensorimotor deficits SKIN: Warm, Dry, normal turgor, no rashes or lesions noted. <Richie Stallings - Last Filed: 06/02/16 16:02> - Vital Signs Last Vital Signs Temp Pulse Resp BP Pulse Ox 98.7 F 100 H 20 126/71 97 06/02/16 13:55 06/02/16 13:55 06/02/16 13:55 06/02/16 13:55 06/02/16 13:55 <Ceasar Rudd - Last Filed: 06/02/16 17:40> Progress Note - Progress Note Progress Note: On reexamination there is no relief of headache. <Richie Stallings - Last Filed: 06/02/16 16:02> - Progress Note Progress Note: Patient states headache is much better. She wants to go home and no imaging. She will follow up with her doctors. <Ceasar Rudd - Last Filed: 06/02/16 17:40> Medical Decision Making - Medical Decision Making 06/02/16 14:50 Dr. Villalpando was called regarding the patient at 2:40pm. Dr. Akhtar covering. Dr. Akhtar was consulted regarding the patient at 2:42pm. Dr. Akhtar will contact Dr. Villalpando in order to get in touch with the ED physician. [phone] <Richie Stallings - Last Filed: 06/02/16 16:02> *DC/Admit/Observation/Transfer - Attestations Scribe Attestion: 06/02/16 14:50 Documentation prepared by Richie Stallings, acting as phlebotomist medical lab assistant for Ceasar Rudd MD <Richie Stallings - Last Filed: 06/02/16 16:02> - Discharge Dispostion Admit: No <Ceasar Rudd - Last Filed: 06/02/16 17:40> Diagnosis at time of Disposition: Migraine headache - Discharge Dispostion Disposition: HOME Condition at time of disposition: Improved - Patient Instructions Printed Discharge Instructions: Migraine -- Adult, DI for Migraine Additional Instructions: follow up with your PMD. Return if worse.
[2016-06-02] MEDS ORDERED: KETOROLAC TROMETHAMINE 30 MG/1 ML VIAL ONE (14:41)
[2016-06-02 17:59] VITALS: BP 120/64; PULSE 72
== END 2016-06-02 18:00 | disposition home or self-care (01) ==
LOC: FER 13:55
PROC: 3E033GC Introduction of Other Therapeutic Substance into Peripheral Vein, Percutaneous Approach (ICD-10-PCS; principal; 2016-06-02)
PROC: 3E0333Z Introduction of Anti-inflammatory into Peripheral Vein, Percutaneous Approach (ICD-10-PCS; 2016-06-02)
DX: G43.909 Migraine, unspecified, not intractable, without status migrainosus (principal); I10 Essential (primary) hypertension; F41.8 Other specified anxiety disorders; Z87.891 Personal history of nicotine dependence
CPT/HCPCS: 99283-25

== ENCOUNTER 2016-06-16 11:50 | Emergency (ER) | payer OTHER ==
[2016-06-16 11:58] VITALS: BP 142/78; PULSE 98; TEMP 98.9; BMI 29.0
[2016-06-16] MEDS ORDERED: SODIUM CHLORIDE 1,000 ML IV STA (12:13)
[2016-06-16] MEDS ORDERED: METOCLOPRAMIDE HCL INJECTION 10 MG/2 ML VIAL IVPB ONE (12:14)
[2016-06-16] MEDS ORDERED: KETOROLAC TROMETHAMINE 30 MG/1 ML VIAL IVPUSH ONE (12:14)
[2016-06-16] MEDS ORDERED: KETOROLAC TROMETHAMINE 30 MG/1 ML VIAL ONE (12:19)
--- NOTE | 2016-06-16 12:52 | PDOC ---
History of Present Illness - General Chief Complaint: Migraine Headache Stated Complaint: MIGRAINE Time Seen by Provider: 06/16/16 11:53 History Source: Patient, Parent(s) Exam Limitations: No Limitations - History of Present Illness Initial Comments: 06/16/16 12:44 CHIEF COMPLAINT: Migraine headache HISTORY OF PRESENT ILLNESS: She is a 35-year-old female with a history of chronic migraine headaches for the last 2 years. She has been on multiple medications, she sees her neurologist every week, and has been refractory to multiple regimens. She frequently has breakthrough headaches that are severe and not responding to medication requiring a visit to the emergency department. She states since yesterday she has been having a very severe migraine and the medication wasn't working so she came to the ED. There is no history of trauma. There is no history of fever. The current migraine is very similar to her prior very severe migraines. REVIEW OF SYSTEMS: GENERAL/CONSTITUTIONAL: No fever or chills. No weakness. No weight change. HEAD, EYES, EARS, NOSE AND THROAT: No change in vision. No scotomas. No ear pain or discharge. No sore throat. CARDIOVASCULAR: No chest pain or shortness of breath. RESPIRATORY: No cough, wheezing, or hemoptysis. GASTROINTESTINAL: No nausea, vomiting, diarrhea or constipation. No rectal bleeding. GENITOURINARY: No dysuria, frequency, or change in urination. MUSCULOSKELETAL: No joint or muscle swelling or pain. Other chronic neck pain associated with the migraine headaches. SKIN AND BREASTS: No rash or easy bruising. NEUROLOGIC: Oz of headache, see history of present illness. No Vertigo, loss of consciousness, or loss of sensation. PSYCHIATRIC: Positive history of chronic depression and anxiety, currently well- controlled. Chronic psychiatric medication. ENDOCRINE: No increased thirst. No abnormal weight change. HEMATOLOGIC/LYMPHATIC: No anemia, easy bleeding, or history of blood clots. ALLERGIC/IMMUNOLOGIC: No hives or skin allergy. No latex allergy. Past History - Past Medical History Allergies/Adverse Reactions: Allergies Allergy/AdvReac Type Severity Reaction Status Date / Time No Known Allergies Allergy Verified 06/16/16 11:53 Home Medications: Ambulatory Orders Buspirone HCl [Buspar -] 30 mg PO BID 09/08/14 Lorazepam [Ativan] 1 mg PO TID 09/08/14 Sertraline HCl [Zoloft] 200 mg PO HS 09/08/14 Quetiapine Fumarate [Seroquel -] 50 mg PO HS 03/19/16 Oxycodone HCl/Acetaminophen [Percocet 5-325 mg Tablet] 1 tab PO Q4H #12 tablet MDD 8 03/28/16 Diphenhydramine HCl [Benadryl Capsule -] 25 mg PO ONCE PRN 04/14/16 Tizanidine HCl 4 mg PO PRN PRN 04/23/16 Zolmitriptan [Zomig] 2.5 mg PO BID 04/23/16 HTN: Yes Psychiatric Problems: Yes (DEPRESSION/ANXIETY/ADHD) Suicide Attempt (Hx): No - Psycho/Social/Smoking Cessation Hx Anxiety: No Suicidal Ideation: No Smoking Status: Yes Smoking History: Former smoker Have you smoked in the past 12 months: Yes Number of Cigarettes Smoked Daily: 10 If you are a former smoker, when did you quit?: JANUARY Information on smoking cessation initiated: Yes 'Breaking Loose' booklet given: 06/16/16 Hx Alcohol Use: No Drug/Substance Use Hx: No Substance Use Type: None *Physical Exam - Vital Signs Last Vital Signs Temp Pulse Resp BP Pulse Ox 98.9 F 98 H 18 142/78 98 06/16/16 11:50 06/16/16 11:50 06/16/16 11:50 06/16/16 12:30 06/16/16 11:50 - Physical Exam Comments: 06/16/16 12:52 GENERAL: The patient is awake, alert, and fully oriented, in no acute distress. HEAD: Normal with no signs of trauma. EYES: Pupils equal, round and reactive to light, extraocular movements intact, sclera anicteric, conjunctiva clear. ENT: Ears normal, nares patent, oropharynx clear without exudates. Moist mucous membranes. NECK: Normal range of motion, although motion exacerbates the headache, supple without lymphadenopathy, JVD, or masses. LUNGS: Breath sounds equal, clear to auscultation bilaterally. No wheezes, and no crackles. HEART: Regular rate and rhythm, normal S1 and S2 without murmur, rub or gallop. ABDOMEN: Soft, nontender, normoactive bowel sounds. No guarding, no rebound. No masses. EXTREMITIES: Normal range of motion, no edema. No clubbing or cyanosis. No cords, erythema, or tenderness. NEUROLOGICAL: Cranial nerves II through XII grossly intact. Normal speech, normal gait. Motor or sensory deficits. PSYCH: Normal mood, normal affect. SKIN: Warm, Dry, normal turgor, no rashes or lesions noted. ED Treatment Course - Medications Given in the ED: ED Medications Discontinued Medications Generic Name Dose Route Start Last Admin Trade Name Preethi PRN Reason Stop Dose Admin Diphenhydramine HCl 25 mg 06/16/16 12:14 06/16/16 12:25 Benadryl Injection - IVPUSH 06/16/16 12:15 25 mg ONCE ONE Administration Ketorolac Tromethamine 30 mg 06/16/16 12:14 06/16/16 12:20 Toradol Injection - IVPUSH 06/16/16 12:15 30 mg ONCE ONE Administration Metoclopramide HCl 10 mg 06/16/16 12:14 06/16/16 12:30 Reglan Injection - IVPB 06/16/16 12:15 10 mg ONCE ONE Administration Medical Decision Making - Medical Decision Making 06/16/16 12:53 Patient with severe exacerbation of her usual chronic migraine headache. IV fluids, Reglan, Benadryl, Toradol, and reassessment are planned. Typically, patient gets better with medication in the ED. No concern for other etiology of headache given the chronic nature of very similar headaches. 06/16/16 13:42 She states her headache is resolving. She feels well and would like to go home to sleep because this usually helps her headache go away completely. She states the medication was effective and she feels satisfied with the pain relief. *DC/Admit/Observation/Transfer Diagnosis at time of Disposition: Migraine headache without aura Qualifiers: Status migrainosus presence: without status migrainosus Intractability: not intractable Qualified Code(s): G43.009 - Migraine without aura, not intractable , without status migrainosus - Discharge Dispostion Disposition: HOME Condition at time of disposition: Improved Admit: No - Patient Instructions Printed Discharge Instructions: DI for Migraine Additional Instructions: You were evaluated today for a migraine headache. The emergency department medications have helped her headache. Continue your regular medications at home. Follow up with your primary care physician. Return to the emergency department for any severe or progressive symptoms.
[2016-06-16] MEDS ORDERED: HYDROmorphone HCL CARPU-JECT 1 MG/1 ML DISP.SYRIN IVPUSH ONE (13:14)
[2016-06-16] MEDS ORDERED: HYDROmorphone HCL CARPU-JECT 2 MG/1 ML DISP.SYRIN ONE (13:22)
== END 2016-06-16 14:14 | disposition home or self-care (01) ==
LOC: FER 11:50
PROC: 3E033NZ Introduction of Analgesics, Hypnotics, Sedatives into Peripheral Vein, Percutaneous Approach (ICD-10-PCS; principal; 2016-06-16)
PROC: 3E0333Z Introduction of Anti-inflammatory into Peripheral Vein, Percutaneous Approach (ICD-10-PCS; 2016-06-16)
PROC: 3E033GC Introduction of Other Therapeutic Substance into Peripheral Vein, Percutaneous Approach (ICD-10-PCS; 2016-06-16)
PROC: 3E0337Z Introduction of Electrolytic and Water Balance Substance into Peripheral Vein, Percutaneous Approach (ICD-10-PCS; 2016-06-16)
DX: G43.009 Migraine without aura, not intractable, without status migrainosus (principal); I10 Essential (primary) hypertension; F41.8 Other specified anxiety disorders; F90.9 Attention-deficit hyperactivity disorder, unspecified type; Z87.891 Personal history of nicotine dependence
CPT/HCPCS: 99283-25

== ENCOUNTER 2016-06-21 10:05 | Emergency (ER) | payer OTHER ==
[2016-06-21] MEDS ORDERED: MAGNESIUM SULF 50% (8.12 MEQ/2 ML-1 GM VIAL) IVPB ONE (10:17)
[2016-06-21] MEDS ORDERED: SODIUM CHLORIDE 1,000 ML IV STA (10:17)
[2016-06-21] MEDS ORDERED: METOCLOPRAMIDE HCL INJECTION 10 MG/2 ML VIAL IVPB ONE (10:17)
--- NOTE | 2016-06-21 10:17 | PDOC ---
History of Present Illness - General Chief Complaint: Migraine Headache Stated Complaint: MIGRAINE Time Seen by Provider: 06/21/16 10:14 History Source: Patient Exam Limitations: No Limitations - History of Present Illness Initial Comments: 06/21/16 10:17 CHIEF COMPLAINT: Migraine headache Ms Head is a 35-year-old female with a history of chronic migraine headaches for the last 2 years. She has had recurrent ER visits for breakthrough headache (12 visits to the ER since March 2016). She has been on multiple medications, she sees her neurologist every week, and has been refractory to multiple regimens. She states her symptoms began 2 days ago. since yesterday she has been having a very severe migraine and the medication wasn't working so she came to the ED. There is no history of trauma. There is no history of fever. The current migraine is very similar to her prior very severe migraines. Allergies: None Past surgical history: None reported Social history: Cigarette use (10 daily). No tobacco or drug use reported PCP - Dr. Dorado Neurologist - Dr. Tiana Villalpando at [facility] REVIEW OF SYSTEMS: GENERAL/CONSTITUTIONAL: No fever or chills. No weakness. No weight change. HEAD, EYES, EARS, NOSE AND THROAT: No change in vision. No scotomas. No ear pain or discharge. No sore throat. CARDIOVASCULAR: No chest pain or shortness of breath. RESPIRATORY: No cough, wheezing, or hemoptysis. GASTROINTESTINAL: No nausea, vomiting, diarrhea or constipation. No rectal bleeding. GENITOURINARY: No dysuria, frequency, or change in urination. MUSCULOSKELETAL: No joint or muscle swelling or pain. Other chronic neck pain associated with the migraine headaches. SKIN: No rash or easy bruising. NEUROLOGIC: (+) headache, see history of present illness. No Vertigo, loss of consciousness, or loss of sensation. PSYCHIATRIC: Positive history of chronic depression and anxiety, currently well- controlled. Chronic psychiatric medication. ENDOCRINE: No increased thirst. No abnormal weight change. HEMATOLOGIC/LYMPHATIC: No anemia, easy bleeding, or history of blood clots. ALLERGIC/IMMUNOLOGIC: No hives or skin allergy. No latex allergy. 06/21/16 10:18 GENERAL: The patient is in no acute distress, patient appears to be in pain, wearing sunglassess HEAD: Normal with no signs of trauma. EYES: PERRLA, EOMI, sclera anicteric, conjunctiva clear. ENT: Ears normal, nares patent, oropharynx clear without exudates. Moist mucous membranes. NECK: Normal range of motion, supple without lymphadenopathy, JVD, or masses. LUNGS: Breath sounds equal, clear to auscultation bilaterally. No wheezes, and no crackles. HEART:Regular rate and rhythm, normal S1 and S2 without murmur, rub or gallop. ABDOMEN: Soft, nontender, normoactive bowel sounds. No guarding, no rebound. No masses palpable. EXTREMITIES: Normal range of motion, no edema. No clubbing or cyanosis. No erythema, or tenderness. NEUROLOGICAL: Cranial nerves II through XII grossly intact. Normal speech. No focal neurological deficits. MUSCULOSKELETAL: Back non-tender to palpation, no CVA tenderness SKIN: Warm, Dry, normal turgor, no rashes or lesions noted. 06/21/16 10:21 06/21/16 10:27 Past History - Past Medical History Allergies/Adverse Reactions: Allergies Allergy/AdvReac Type Severity Reaction Status Date / Time No Known Allergies Allergy Verified 06/16/16 11:53 Home Medications: Ambulatory Orders Buspirone HCl [Buspar -] 30 mg PO BID 09/08/14 Lorazepam [Ativan] 1 mg PO TID 09/08/14 Sertraline HCl [Zoloft] 200 mg PO HS 09/08/14 Quetiapine Fumarate [Seroquel -] 50 mg PO HS 03/19/16 Oxycodone HCl/Acetaminophen [Percocet 5-325 mg Tablet] 1 tab PO Q4H #12 tablet MDD 8 03/28/16 Diphenhydramine HCl [Benadryl Capsule -] 25 mg PO ONCE PRN 04/14/16 Tizanidine HCl 4 mg PO PRN PRN 04/23/16 Zolmitriptan [Zomig] 2.5 mg PO BID 04/23/16 HTN: Yes Psychiatric Problems: Yes (DEPRESSION/ANXIETY/ADHD) Suicide Attempt (Hx): No - Psycho/Social/Smoking Cessation Hx Anxiety: No Suicidal Ideation: No Smoking Status: Yes Smoking History: Former smoker Have you smoked in the past 12 months: Yes Number of Cigarettes Smoked Daily: 10 If you are a former smoker, when did you quit?: JanuaryBreaking Loose' booklet given: 06/16/16 Hx Alcohol Use: No Drug/Substance Use Hx: No Substance Use Type: None Medical Decision Making - Medical Decision Making 06/21/16 11:46 Upon re assessment, pt states she feels much better Call placed to her neurologist She has an appointment on Friday Surgery is scheduled for next week Pt encouraged to return to the ER for any other concerns or complaints 06/22/16 07:35 *DC/Admit/Observation/Transfer Diagnosis at time of Disposition: Migraine headache without aura Migraine headache Qualifiers: Migraine type: other Status migrainosus presence: with status migrainosus Intractability: not intractable Qualified Code(s): G43.801 - Other migraine, not intractable, with status migrainosus - Discharge Dispostion Disposition: HOME Condition at time of disposition: Good Admit: No - Patient Instructions Printed Discharge Instructions: DI for Migraine Additional Instructions: Re Thank you for coming in to the ER today Please return to us if your headache worsens or you have any other concerns or complaints Best of luck with your upcoming surgery
[2016-06-21] MEDS ORDERED: KETOROLAC TROMETHAMINE 30 MG/1 ML VIAL IVPUSH ONE (10:26)
[2016-06-21] MEDS ORDERED: HYDROmorphone HCL CARPU-JECT 1 MG/1 ML DISP.SYRIN IVPB ONE (10:26)
[2016-06-21 10:27] VITALS: BP 117/78; PULSE 88; TEMP 98.3; BMI 29.0
[2016-06-21] MEDS ORDERED: HYDROmorphone HCL CARPU-JECT 2 MG/1 ML DISP.SYRIN ONE (10:56)
[2016-06-21] MEDS ORDERED: KETOROLAC TROMETHAMINE 30 MG/1 ML VIAL ONE (10:56)
== END 2016-06-21 11:53 | disposition home or self-care (01) ==
LOC: FER 10:05
PROC: 3E033NZ Introduction of Analgesics, Hypnotics, Sedatives into Peripheral Vein, Percutaneous Approach (ICD-10-PCS; principal; 2016-06-21)
PROC: 3E0333Z Introduction of Anti-inflammatory into Peripheral Vein, Percutaneous Approach (ICD-10-PCS; 2016-06-21)
PROC: 3E033GC Introduction of Other Therapeutic Substance into Peripheral Vein, Percutaneous Approach (ICD-10-PCS; 2016-06-21)
PROC: 3E0337Z Introduction of Electrolytic and Water Balance Substance into Peripheral Vein, Percutaneous Approach (ICD-10-PCS; 2016-06-21)
DX: G43.801 Other migraine, not intractable, with status migrainosus (principal); F41.8 Other specified anxiety disorders; I10 Essential (primary) hypertension; Z87.891 Personal history of nicotine dependence
CPT/HCPCS: 99282-25

== ENCOUNTER 2016-07-07 10:13 | Emergency (ER) | payer OTHER ==
--- NOTE | 2016-07-07 10:18 | PDOC ---
History of Present Illness - General Chief Complaint: Migraine Headache Stated Complaint: head ache/migraine Time Seen by Provider: 07/07/16 10:17 History Source: Patient Exam Limitations: No Limitations - History of Present Illness Initial Comments: 35 yo F history migraines, anxiety, depression, well-known to this ED, presenting with her typical migraine symptoms. C/o severe occipital pain radiating to the temples B/L. Associated with photophobia, phonophobia, nausea. She took her zomig yesterday at home without relief. She took percocet this morning without relief. She has neuroplasty surgery scheduled in 3 days. Past History - Past Medical History Allergies/Adverse Reactions: Allergies Allergy/AdvReac Type Severity Reaction Status Date / Time No Known Allergies Allergy Verified 07/07/16 10:21 Home Medications: Ambulatory Orders Buspirone HCl [Buspar -] 30 mg PO BID 09/08/14 Lorazepam [Ativan] 1 mg PO TID 09/08/14 Sertraline HCl [Zoloft] 200 mg PO HS 09/08/14 Quetiapine Fumarate [Seroquel -] 50 mg PO HS 03/19/16 Tizanidine HCl 4 mg PO PRN PRN 04/23/16 Zolmitriptan [Zomig] 2.5 mg PO BID 04/23/16 Oxycodone HCl/Acetaminophen [Percocet 10-325 mg Tablet] 1 each PO PRN PRN HTN: Yes Psychiatric Problems: Yes (DEPRESSION/ANXIETY/ADHD) Suicide Attempt (Hx): No Other medical history: migraine - Psycho/Social/Smoking Cessation Hx Anxiety: No Suicidal Ideation: No Smoking Status: Yes Smoking History: Former smoker Have you smoked in the past 12 months: Yes Number of Cigarettes Smoked Daily: 10 If you are a former smoker, when did you quit?: JANUARY Information on smoking cessation initiated: No 'Breaking Loose' booklet given: 06/16/16 Hx Alcohol Use: No Drug/Substance Use Hx: No Substance Use Type: None Review of Systems - Review of Systems Able to Perform ROS?: Yes Comments:: GENERAL/CONSTITUTIONAL: No fever or chills. No weakness. HEAD, EYES, EARS, NOSE AND THROAT: No change in vision. No ear pain or discharge. No sore throat. CARDIOVASCULAR: No chest pain or shortness of breath. RESPIRATORY: No cough, wheezing, or hemoptysis. GASTROINTESTINAL: No nausea, vomiting, diarrhea or constipation. GENITOURINARY: No dysuria, frequency, or change in urination. MUSCULOSKELETAL: No joint or muscle swelling or pain. No neck or back pain. SKIN: No rash NEUROLOGIC: +Headache. No vertigo, loss of consciousness, or change in strength/ sensation. ENDOCRINE: No increased thirst. No abnormal weight change. HEMATOLOGIC/LYMPHATIC: No anemia, easy bleeding, or history of blood clots. ALLERGIC/IMMUNOLOGIC: No hives or skin allergy. *Physical Exam - Physical Exam Comments: GENERAL: Awake, alert, and fully oriented, in no acute distress. Wearing sunglasses. HEAD: No signs of trauma EYES: PERRLA, EOMI, sclera anicteric, conjunctiva clear ENT: Auricles normal inspection, hearing grossly normal, nares patent, oropharynx clear without exudates. Moist mucosa NECK: Normal ROM, supple, no lymphadenopathy, JVD, or masses LUNGS: Breath sounds equal, clear to auscultation bilaterally. No wheezes, and no crackles HEART: Regular rate and rhythm, normal S1 and S2, no murmurs, rubs or gallops ABDOMEN: Soft, nontender, normoactive bowel sounds. No guarding, no rebound. No masses EXTREMITIES: Normal range of motion, no edema. No clubbing or cyanosis. No cords, erythema, or tenderness NEUROLOGICAL: Cranial nerves II through XII grossly intact. Normal speech, normal gait SKIN: Warm, Dry, normal turgor, no rashes or lesions noted. Medical Decision Making - Medical Decision Making 07/07/16 10:39 Pt states that her surgery is scheduled for Friday (it is currently Friday), and the preop paperwork states that she may not have any NSAIDs or aspirin for the 7 days prior to surgery. Would prefer to avoid an opioid, as this is likely going to give her a rebound headache, however, in this case, will give it as there is no alternative. *DC/Admit/Observation/Transfer Diagnosis at time of Disposition: Migraine headache Qualifiers: Migraine type: unspecified Status migrainosus presence: with status migrainosus Intractability: not intractable Qualified Code(s): G43.901 - Migraine, unspecified, not intractable, with status migrainosus - Discharge Dispostion Disposition: HOME Condition at time of disposition: Improved Admit: No - Patient Instructions Printed Discharge Instructions: DI for Migraine
[2016-07-07 10:21] VITALS: BP 113/74; PULSE 87; TEMP 98.7; BMI 29.0
[2016-07-07] MEDS ORDERED: SODIUM CHLORIDE 1,000 ML IV STA (10:36)
[2016-07-07] MEDS ORDERED: HYDROmorphone HCL CARPU-JECT 1 MG/1 ML DISP.SYRIN IVPB ONE (10:36)
[2016-07-07] MEDS ORDERED: METOCLOPRAMIDE HCL INJECTION 10 MG/2 ML VIAL IVPB ONE (10:36)
[2016-07-07] MEDS ORDERED: HYDROmorphone HCL CARPU-JECT 2 MG/1 ML DISP.SYRIN ONE (10:39)
== END 2016-07-07 11:55 | disposition home or self-care (01) ==
LOC: FER 10:13
PROC: 3E033NZ Introduction of Analgesics, Hypnotics, Sedatives into Peripheral Vein, Percutaneous Approach (ICD-10-PCS; principal; 2016-07-07)
PROC: 3E033GC Introduction of Other Therapeutic Substance into Peripheral Vein, Percutaneous Approach (ICD-10-PCS; 2016-07-07)
PROC: 3E0337Z Introduction of Electrolytic and Water Balance Substance into Peripheral Vein, Percutaneous Approach (ICD-10-PCS; 2016-07-07)
DX: G43.901 Migraine, unspecified, not intractable, with status migrainosus (principal); Z87.891 Personal history of nicotine dependence; I10 Essential (primary) hypertension; F41.8 Other specified anxiety disorders; F90.9 Attention-deficit hyperactivity disorder, unspecified type
CPT/HCPCS: 84703; 99282-25